=== PATIENT | male | born 1980 | race Caucasian/White ===

== ENCOUNTER 2019-08-07 11:00 | Emergency (ER) | payer MEDICAID ==
[~2019-08-07] VITALS: Ht 175.3 cm; Wt 222.0 kg
[2019-08-07 11:14] VITALS: BP 163/79
--- NOTE | 2019-08-07 11:24 | NUR ---
Patient ambulated to bed 12. RN evaluating patient at bedside.
--- NOTE | 2019-08-07 11:45 | NUR ---
C/O SYEDA HIP PAIN RADIATING TO SYEDA KNEE PAIN X 3 WEEKS. DENIES TRAUMA. MED HX; DENIES
[2019-08-07] MEDS ORDERED: HYDROcodone/APAP 5/325 MG 1 TAB TAB PO ONE (11:50)
[2019-08-07 12:26] VITALS: BP 134/76
== END 2019-08-07 12:26 | disposition home or self-care (01) ==
LOC: MED 11:00
DX: M25.561 Pain in right knee (principal); M25.562 Pain in left knee; M54.16 Radiculopathy, lumbar region; E66.9 Obesity, unspecified; Z68.45 Body mass index [BMI] 70 or greater, adult
CPT/HCPCS: 99283